=== PATIENT | female | born 1950 | race Caucasian/White ===

== ENCOUNTER 2020-01-21 05:33 | Inpatient (IN) | payer MEDICARE, OTHER ==
[2020-01-17 11:31] VITALS: BMI 26.5
[2020-01-21] MEDS ORDERED: Sodium Chloride 0.9% 100 ML ONE (06:01)
[2020-01-21] MEDS ORDERED: Vancomycin 1 GM/200 ML BAG ONE (06:01)
[2020-01-21] MEDS ORDERED: Tranexamic Acid 1,000 MG/10 ML VIAL ONE ×2 (06:01→08:57)
[2020-01-21] MEDS ORDERED: Bupivacaine PF 0.5% 30 ML VIAL ONE ×2 (06:28→06:30)
[2020-01-21] MEDS ORDERED: Midazolam HCl 2 mg/2 ml Vial ONE (06:29)
[2020-01-21] MEDS ORDERED: Fentanyl 100 MCG/2 ML VIAL ONE ×3 (06:29→09:14)
[2020-01-21] MEDS ORDERED: Ropivacaine 0.2% HCl/PF 20 ML ONE (06:30)
[2020-01-21] MEDS ORDERED: Bupivacaine HCl 0.5%/Epinephrine 1:200,000/PF 30 ml Vial ONE (07:05)
[2020-01-21] MEDS ORDERED: Ropivacaine 0.2% HCl/PF (40 MG/20 ML VIAL) ONE (07:05)
[2020-01-21] MEDS ORDERED: Dexamethasone 20 MG/5 ML VIAL ONE (07:16)
[2020-01-21] MEDS ORDERED: PROPOFOL 200 MG/20 ML VIAL ONE (07:16)
[2020-01-21] MEDS ORDERED: Lidocaine 1% PF 5 ML VIAL ONE (07:16)
[2020-01-21] MEDS ORDERED: Ondansetron PF 4 MG/2 ML Vial ONE (07:16)
[2020-01-21] MEDS ORDERED: Ketorolac Tromethamine 30 MG/ML VIAL ONE (07:16)
[2020-01-21] MEDS ORDERED: Zolpidem Tartrate 5 MG TAB PO PRN ×2 (07:17→08:00)
[2020-01-21] MEDS ORDERED: diphenhydrAMINE 25 MG CAP PO PRN (07:17)
[2020-01-21] MEDS ORDERED: traMADol HCl 50 MG TAB PO PRN ×2 (07:17→08:00)
[2020-01-21] MEDS ORDERED: Promethazine HCl 25 MG/ML VIAL IM PRN ×3 (07:17→08:28)
[2020-01-21] MEDS ORDERED: Fentanyl 100 MCG/2 ML VIAL SLOW IVP PRN (07:17)
[2020-01-21] MEDS ORDERED: Acetaminophen 325 MG TAB PO PRN ×2 (07:17→08:00)
[2020-01-21] MEDS ORDERED: Ondansetron PF 4 MG/2 ML Vial IVP PRN ×2 (07:17→08:00)
[2020-01-21] MEDS ORDERED: Pentazocine HCl/Naloxone HCl 50/0.5 MG TAB PO PRN (07:21)
[2020-01-21] MEDS ORDERED: Tranexamic Acid 1,000 MG in Sodium Chloride 0.9% 100 ML IVPB SCH (07:30)
[2020-01-21] MEDS ORDERED: Fentanyl 100 MCG/2 ML VIAL IV PRN (07:52)
[2020-01-21] MEDS ORDERED: Ropivacaine HCl/PF 250 ML in Premix Bag 1 BAG NERVE BLCK SCH (08:00)
[2020-01-21] MEDS ORDERED: HYDROcodone/Acetaminophen 10/325 mg Tablet PO PRN ×2 (08:00)
[2020-01-21] MEDS ORDERED: Meperidine HCl/PF 25 MG/ML VIAL SLOW IVP PRN (08:28)
[2020-01-21] MEDS ORDERED: HYDROmorphone 2 MG/ML VIAL SLOW IVP PRN (08:28)
[2020-01-21] MEDS ORDERED: Promethazine HCl 25 MG/ML VIAL SLOW IVP PRN (08:28)
[2020-01-21] MEDS: Aspirin 81 mg Enteric Coated Tablet PO SCH ×2 (11:48→20:34)
[2020-01-21] MEDS: Sodium Chloride 0.9% 1,000 ML IV SCH ×2 (11:48→12:31)
[2020-01-21] MEDS: Ferrous Gluconate 324 MG TAB PO SCH ×2 (11:48→20:35)
[2020-01-21] MEDS: Senokot S 8.6-50 MG TAB PO SCH ×2 (11:49→20:35)
[2020-01-21] MEDS: Multivitamin W/ Minerals 1 TAB PO SCH (11:49)
[2020-01-21] MEDS: Acetaminophen 500 MG TAB PO SCH ×3 (12:23→23:19)
[2020-01-21] MEDS: Ketorolac Tromethamine 30 MG/ML VIAL IVP SCH ×3 (12:31→23:19)
[2020-01-21] MEDS ORDERED: Ketorolac Tromethamine 30 MG/ML VIAL IVP SCH (14:00)
[2020-01-21] MEDS: CEFAZOLIN 2 GM in Premix Bag 1 BAG IVPB SCH ×2 (17:43→21:00)
[2020-01-21] MEDS ORDERED: Vancomycin 1 GM in Premix Bag 1 BAG IVPB SCH (18:00)
[2020-01-22] MEDS: Sodium Chloride 0.9% 1,000 ML IV SCH ×3 (02:42→23:12)
[2020-01-22 05:13] LABS: Hemoglobin 10.7 g/dL (12.0-16.0); Mean Corpuscular HGB CONC 31.9 g/dL (32.0-36.0); Mean Corpuscular Hemoglobin 29.2 pg (27.0-31.0); Mean Corpuscular Volume 91.4 fL (78.0-98.0); Mean Platelet Volume 8.7 fL (7.4-10.4); Platelet Count 187 thou/uL (130-400); RBC Distribution Width 12.2 % (11.5-14.5); Red Blood Cell (RBC) Count 3.66 mill/uL (4.20-5.40); White Blood Cell (WBC) Count 10.6 thou/uL (4.8-10.8)
[2020-01-22] MEDS: Ketorolac Tromethamine 30 MG/ML VIAL IVP SCH ×4 (05:15→23:24)
[2020-01-22] MEDS: Acetaminophen 500 MG TAB PO SCH ×5 (05:15→23:24)
[2020-01-22] MEDS: Aspirin 81 mg Enteric Coated Tablet PO SCH ×2 (07:46→20:42)
[2020-01-22] MEDS: traMADol HCl 50 MG TAB PO PRN ×2 (07:47→15:41)
--- NOTE | 2020-01-22 08:43 | PRG ---
DATE OF SERVICE: 01/22/2020 SUBJECTIVE: Janeth is a 69-year-old female, postop day #1 from a left total knee arthroplasty. She is doing relatively well. She did have a fall. She reports this morning, but nursing staff tells me she landed on her left lateral thigh. The patient is a little more concerned and expresses concerns about the landing "on the knee." OBJECTIVE: VITAL SIGNS: Temperature 97.9, pulse 58, respiratory rate 18, and blood pressure 125/70. GENERAL: She is alert and oriented to person, place, time, situation. Responsive and appropriate with examiner. EXTREMITIES: Her incision is clean. No strikethrough. No erythema. There are no breaks in the skin. Essentially, the wound looks great. She cannot straight leg raise, but I do not know if this is still her adductor canal block working, but she is in a long-leg immobilizer. I do not palpate any defect in the extensor tendon, and the knee does not look swollen or tense as it does not have an appearance consistent with a soft tissue breach under the skin, but she is neurovascularly intact. LABORATORY DATA: Hemoglobin and hematocrit of 10.7 and 33.5. IMPRESSION: This is a 69-year-old female, postop day #1, left total knee arthroplasty, doing well. PLAN: Continue current care. Initiate physical therapy. Give consideration to discharge tomorrow unless there is no setback or other concerns. Serial reexaminations of the quadriceps repair. Job ID: [id number]
[2020-01-22] MEDS: Multivitamin W/ Minerals 1 TAB PO SCH (12:13)
[2020-01-22] MEDS: Senokot S 8.6-50 MG TAB PO SCH ×2 (12:13→20:42)
[2020-01-22] MEDS: Ferrous Gluconate 324 MG TAB PO SCH ×2 (12:13→20:42)
--- NOTE | 2020-01-22 12:37 | OP ---
DATE OF PROCEDURE: 01/21/2020 PREOPERATIVE DIAGNOSIS: Left knee osteoarthrosis. POSTOPERATIVE DIAGNOSIS: Left knee osteoarthrosis. PROCEDURE PERFORMED: Left total knee replacement using [employer] pinless navigation. SCHOOL PRINCIPAL: Stephen Mae PA-C COMPLICATIONS: None. ANESTHESIA: The patient did have a general anesthetic as well as a preoperative block. IMPLANTS: We used [employer] total knee system. We used a size 3 cruciate-retaining left femur. We used a size 2 primary tibial baseplate. We used 2 x 9 mm X3 tibial poly, and we used a 27 x 8 symmetric X3 patella. DISPOSITION: She did go to recovery room in stable condition. INDICATIONS: This is a 69-year-old female, who has failed nonoperative treatment for left knee osteoarthrosis. At this time, she wished to have her knee replaced. PROCEDURE IN DETAIL: After all appropriate consent forms were explained and signed, the patient was taken back to the operating room and at this time was given general anesthetic. Once the level of anesthesia was appropriate, a well-padded tourniquet was placed on the left leg, and the leg was then prepped and draped in standard surgical fashion. The limb was exsanguinated and tourniquet taken up to 300 mmHg. Midline incision was made with a 10 blade down through the skin and subcutaneous tissue. Bovie electrocautery was used to coagulate any brisk venous bleeding. A new blade was used to make a medial parapatellar arthrotomy. Small subperiosteal release was performed medially and excess fat pad was removed. The knee was flexed up to gain access to the femur. The femur was navigated and distal femoral resection was made. Epicondylar access was used to align our sizing jig and this was pinned in place. We sized our femur to be a size 3 cruciate-retaining left femur. 4:1 cutting block was applied and pinned. Anterior and posterior chamfer cuts were then made. We navigated out our proximal tibia and made our proximal tibial resection. Spreaders were used to remove any posterior osteophytes off the back of the femur as well as remaining meniscal tissue. A long alignment eleonora was then used to achieve correct rotation of our tibial baseplate and we used a size 2 primary tibial baseplate was chosen. This was pinned in place. We trialed the polyethylene and we used 2 x 9 mm X3 tibial poly gave us full extension and good stability throughout range of motion. Two towel clips and a saw were used to cut our patella. Three lug nuts were drilled and we used a 27 x 8 symmetric X3 patella was trialed which sat nicely in the trochlear groove. We then drilled our femur and punched our tibia. All components were removed. The knee was thoroughly irrigated and dried. Cement was mixed into the cement gun on the back table. Components were then placed. The knee was held out in full extension until the cement had dried. All excess bone cement was removed. Multiple #2 Vicryl stitches as well as a Quill were used to close our extensor mechanism. 0 Quill followed by a running Monoderm was then used to close the skin. Surgicel glue was then used on the skin. Once this had dried, soft tissue dressing was applied to the limb, tourniquet was let down, and the toes pinked up nicely. The patient was then awakened and taken to the recovery room in stable condition. All counts were correct at the end of the case. The patient did receive preoperative IV antibiotics. The patient was injected with Marcaine for postoperative pain relief. The video library assistant surgeon was present throughout the procedure including the approach, placement of the implants and closure. Job ID: [id number]
[2020-01-23] MEDS: traMADol HCl 50 MG TAB PO PRN ×3 (00:11→14:30)
[2020-01-23] MEDS: Acetaminophen 500 MG TAB PO SCH ×2 (04:06→11:02)
[2020-01-23] MEDS: Ketorolac Tromethamine 30 MG/ML VIAL IVP SCH (05:04)
[2020-01-23 05:25] LABS: Mean Corpuscular HGB CONC 31.9 g/dL (32.0-36.0); Mean Corpuscular Hemoglobin 29.2 pg (27.0-31.0); Mean Corpuscular Volume 91.6 fL (78.0-98.0); Mean Platelet Volume 8.8 fL (7.4-10.4); Platelet Count 162 thou/uL (130-400); RBC Distribution Width 12.3 % (11.5-14.5); Red Blood Cell (RBC) Count 3.42 mill/uL (4.20-5.40); White Blood Cell (WBC) Count 8.9 thou/uL (4.8-10.8)
[2020-01-23] MEDS: Ferrous Gluconate 324 MG TAB PO SCH (08:59)
[2020-01-23] MEDS: Multivitamin W/ Minerals 1 TAB PO SCH (08:59)
[2020-01-23] MEDS: Aspirin 81 mg Enteric Coated Tablet PO SCH (08:59)
[2020-01-23] MEDS: Senokot S 8.6-50 MG TAB PO SCH (08:59)
[2020-01-23] MEDS: Sodium Chloride 0.9% 1,000 ML IV SCH (09:06)
[2020-01-23] MEDS ORDERED: Bisacodyl 10 MG SUPP PR PRN (10:11)
[2020-01-23] MEDS ORDERED: Acetaminophen 500 MG TAB PO PRN (13:00)
[2020-01-23 15:53] VITALS: BP 163/80; TEMP 98
== END 2020-01-23 15:50 | disposition home or self-care (01) | DRG 470 ==
LOC: SDC 05:33 → SJJU 07:17 → SDC 01-23 15:50
PROVIDERS: ADMIT Orthopaedic Surgery; ATTEND Orthopaedic Surgery
PROC: 0SRD0J9 Replacement of Left Knee Joint with Synthetic Substitute, Cemented, Open Approach (ICD-10-PCS; principal; 2020-01-21)
PROC: 8E0YXBZ Computer Assisted Procedure of Lower Extremity (ICD-10-PCS; 2020-01-21)
DX: M17.12 Unilateral primary osteoarthritis, left knee (principal); E78.5 Hyperlipidemia, unspecified; F32.9 Major depressive disorder, single episode, unspecified; Z79.899 Other long term (current) drug therapy; Z88.5 Allergy status to narcotic agent; Z91.040 Latex allergy status
CPT/HCPCS: 36415; 85027; C1713; C1776; J0670; J0690; J1100; J1885; J2250; J2405; J2704; J2795; J3010; J3370; J3490; Q0163; S0020